=== PATIENT | male | born 2000 | race Caucasian/White ===

== ENCOUNTER 2022-01-14 13:48 | Emergency (ER) | payer OTHER ==
[~2022-01-14] VITALS: Ht 182.8 cm; Wt 52.2 kg
== END 2022-01-14 14:08 | disposition home or self-care (01) ==
LOC: ED 13:48
DX: S99.922A Unspecified injury of left foot, initial encounter (principal); X58.XXXA Exposure to other specified factors, initial encounter; Y93.89 Activity, other specified; Y92.89 Other specified places as the place of occurrence of the external cause; Y99.8 Other external cause status

== ENCOUNTER 2022-02-10 17:17 | Emergency (ER) | payer OTHER ==
[~2022-02-10] VITALS: Wt 54.4 kg
[2022-02-10] MEDS ORDERED: AMOXICILLIN500 M2 PO (17:51)
[2022-02-10] MEDS ORDERED: CETIRIZINE10 MG PO (17:51)
== END 2022-02-10 18:05 | disposition home or self-care (01) ==
LOC: ED 17:17
DX: H66.91 Otitis media, unspecified, right ear (principal)

== ENCOUNTER 2022-05-16 14:57 | Emergency (ER) | payer OTHER ==
[~2022-05-16] VITALS: Wt 52.2 kg
[~2022-05-16 14:57] MED LIST: AMOXICILLIN500 M2 PO; CETIRIZINE10 MG PO
[2022-05-16] MEDS ORDERED: FLONASE ALLERG9.9 ML NAS (15:50)
== END 2022-05-16 15:56 | disposition home or self-care (01) ==
LOC: ED 14:57
DX: J06.9 Acute upper respiratory infection, unspecified (principal)

== ENCOUNTER 2022-06-28 01:14 | Emergency (ER) | payer OTHER ==
[~2022-06-28] VITALS: Ht 180.3 cm; Wt 56.7 kg
[~2022-06-28 01:14] MED LIST changes: +FLONASE ALLERG9.9 ML NAS
[2022-06-28 01:59] LABS: BASO % 0.7 % (0.0-1.0); EOS # 0.3 10*3/uL (0.0-0.4); EOS % 4.6 % (1.0-4.0); HEMATOCRIT 46.2 % (42.0-52.0); LYMPH # 2.9 10*3/uL (1.3-4.4); LYMPH % 49.3 % (27.0-41.0); MEAN CELL VOLUME 90.6 fl (80.0-94.0); MEAN CORPUSCULAR HGB 30.2 pg (27.0-31.0); MEAN CORPUSCULAR HGB CONC 33.3 g/dl (33.0-37.0); MONO # 0.6 10*3/uL (0.1-1.0); MONO % 9.5 % (3.0-9.0); NEUT # 2.1 10*3/uL (2.3-7.9); NEUT % 35.7 % (47.0-73.0); PLATELET COUNT AUTOMATED 261 10*3/uL (130-400); RED CELL DISTRI WIDTH 12.3 % (0-14.5); WHITE BLOOD COUNT 5.9 10*3/uL (4.8-10.8)
[2022-06-28 02:16] LABS: ALKALINE PHOSPHATASE 104 U/L (46-116); BUN 7 mg/dl (9-23); CHLORIDE 103 mmol/L (98-107); CREATININE 0.84 mg/dL (0.70-1.30); LIPASE 26 U/L (12-53); POTASSIUM 3.8 mmol/L (3.4-5.1); SGPT/ALT 20 U/L (10-49); SODIUM 137 mmol/L (136-145)
[2022-06-28 02:17] LABS: TOTAL PROTEIN 7.6 gm/dL (6.0-8.0)
[2022-06-28] MEDS ORDERED: HYDROCODONE-AC1 EAC1 PO (03:33)
== END 2022-06-28 03:50 | disposition home or self-care (01) ==
LOC: ED 01:14
PROVIDERS: Emergency Medicine
DX: N13.2 Hydronephrosis with renal and ureteral calculous obstruction (principal)

== ENCOUNTER 2022-07-07 06:54 | Emergency (ER) | payer OTHER ==
[~2022-07-07] VITALS: Wt 54.4 kg
[~2022-07-07 06:54] MED LIST changes: +HYDROCODONE-AC1 EAC1 PO
[2022-07-07 08:02] LABS: BASO % 0.3 % (0.0-1.0); EOS # 0.1 10*3/uL (0.0-0.4); EOS % 2.4 % (1.0-4.0); HEMATOCRIT 46.4 % (42.0-52.0); LYMPH # 2.1 10*3/uL (1.3-4.4); LYMPH % 36.8 % (27.0-41.0); MEAN CELL VOLUME 89.6 fl (80.0-94.0); MEAN CORPUSCULAR HGB 30.3 pg (27.0-31.0); MEAN CORPUSCULAR HGB CONC 33.8 g/dl (33.0-37.0); MEAN PLATELET VOLUME 10.3 fl (9.6-12.3); MONO # 0.6 10*3/uL (0.1-1.0); MONO % 9.5 % (3.0-9.0); NEUT # 2.9 10*3/uL (2.3-7.9); NEUT % 50.8 % (47.0-73.0); PLATELET COUNT AUTOMATED 294 10*3/uL (130-400); RED BLOOD COUNT 5.18 10*6/uL (4.50-5.90); RED CELL DISTRI WIDTH 12.1 % (0-14.5); WHITE BLOOD COUNT 5.8 10*3/uL (4.8-10.8)
[2022-07-07 08:16] LABS: BILIRUBIN Negative (Negative); BLOOD Negative (Negative); CLARITY Clear (Clear); COLOR Yellow (Yellow); GLUCOSE Negative (Negative); KETONE Negative (Negative); LEUKO ESTERASE Trace (Negative); NITRITE Negative (Negative); SPECIFIC GRAVITY 1.025 (1.001-1.030)
[2022-07-07 08:19] LABS: ALKALINE PHOSPHATASE 100 U/L (46-116); BUN 11 mg/dl (9-23); CHLORIDE 102 mmol/L (98-107); CREATININE 0.75 mg/dL (0.70-1.30); LIPASE 26 U/L (12-53); POTASSIUM 4.1 mmol/L (3.4-5.1); SGPT/ALT 52 U/L (10-49); SODIUM 139 mmol/L (136-145); TOTAL PROTEIN 8.3 gm/dL (6.0-8.0)
[2022-07-07 08:38] LABS: BACTERIA 1+; MUCOUS 2+
[2022-07-07] MEDS ORDERED: FLOMAX0.4 MG PO (08:57)
== END 2022-07-07 09:09 | disposition home or self-care (01) ==
LOC: ED 06:54
PROVIDERS: Family Medicine
DX: N20.0 Calculus of kidney (principal)

== ENCOUNTER 2022-08-09 10:30 | Emergency (ER) | payer OTHER ==
[~2022-08-09] VITALS: Ht 154.9 cm; Wt 54.4 kg
[~2022-08-09 10:30] MED LIST changes: +FLOMAX0.4 MG PO
[2022-08-09] MEDS ORDERED: AMOXICILLIN500 M2 PO (11:22)
== END 2022-08-09 11:45 | disposition home or self-care (01) ==
LOC: ED 10:30
DX: H66.91 Otitis media, unspecified, right ear (principal); J06.9 Acute upper respiratory infection, unspecified; Z20.822 Contact with and (suspected) exposure to COVID-19

== ENCOUNTER 2022-09-13 14:11 | Emergency (ER) | payer OTHER ==
[~2022-09-13] VITALS: Ht 180.3 cm; Wt 52.2 kg
[2022-09-13] MEDS ORDERED: PREDNISONE20 M1 PO (16:58)
[2022-09-13] MEDS ORDERED: PROVENTIL HFA6.7 GM INH (16:58)
== END 2022-09-13 17:17 | disposition home or self-care (01) ==
LOC: ED 14:11
DX: B34.9 Viral infection, unspecified (principal); Z20.822 Contact with and (suspected) exposure to COVID-19

== ENCOUNTER → 2022-09-22 | Outpatient (CLI) | payer OTHER ==
[~2022-09-22] MED LIST changes: +PREDNISONE20 M1 PO; +PROVENTIL HFA6.7 GM INH
== END | disposition home or self-care (01) ==
LOC: US 08-17 15:00
PROVIDERS: ATTEND Urology
DX: N20.0 Calculus of kidney (principal)

== ENCOUNTER 2022-10-14 12:01 | Emergency (ER) | payer OTHER ==
[~2022-10-14] VITALS: Ht 180.3 cm; Wt 52.2 kg
[2022-10-14] MEDS ORDERED: PREDNISONE50 MG PO (13:41)
== END 2022-10-14 13:47 | disposition home or self-care (01) ==
LOC: ED 12:01
DX: H69.92 Unspecified Eustachian tube disorder, left ear (principal); Z87.442 Personal history of urinary calculi

== ENCOUNTER 2025-02-12 14:21 | Emergency (ER) | payer SELFPAY ==
[~2025-02-12] VITALS: Ht 180.3 cm; Wt 54.4 kg
[~2025-02-12 14:21] MED LIST changes: +PREDNISONE50 MG PO
[2025-02-12] MEDS ORDERED: IBUPROFEN 800 MG TAB PO ONE (15:05)
== END 2025-02-12 15:50 | disposition home or self-care (01) ==
LOC: ED 14:21
DX: S66.911A Strain of unspecified muscle, fascia and tendon at wrist and hand level, right hand, initial encounter (principal); X50.9XXA Other and unspecified overexertion or strenuous movements or postures, initial encounter; Y93.89 Activity, other specified; Y92.89 Other specified places as the place of occurrence of the external cause; Y99.8 Other external cause status